=== PATIENT | female | born 1985 | race Caucasian/White ===

== ENCOUNTER 2016-12-20 08:46 | Emergency (ER) | payer OTHER | END 2016-12-20 10:36 | disposition home or self-care (01) | LOC: ERS 08:46 | DX: O99.89 Other specified diseases and conditions complicating pregnancy, childbirth and the puerperium (principal); N89.8 Other specified noninflammatory disorders of vagina; O99.331 Smoking (tobacco) complicating pregnancy, first trimester; F17.210 Nicotine dependence, cigarettes, uncomplicated | CPT/HCPCS: 36415; 84702; 87480; 87491; 87510; 87591; 87660; 99283 ==

== ENCOUNTER 2020-04-21 09:07 | Outpatient (CLI) | payer OTHER | END 2020-04-21 09:08 | disposition home or self-care (01) | LOC: DTY/OP 09:07 | PROVIDERS: ATTEND Specialist | DX: Z01.818 Encounter for other preprocedural examination (principal); E66.01 Morbid (severe) obesity due to excess calories | CPT/HCPCS: 97802 ==

== ENCOUNTER 2020-05-22 07:15 | Inpatient (IN) | payer OTHER ==
[2020-05-25 09:31] VITALS: BMI 38.6
[2020-05-26] MEDS ORDERED: Bupivacaine 0.25% HCL 30 ML VIAL ONE (06:24)
[2020-05-26] MEDS ORDERED: EPINEPHrine 1 MG/ML AMP ONE (06:24)
[2020-05-26] MEDS ORDERED: Ketorolac Tromethamine 30 MG/ML VIAL ONE (06:33)
[2020-05-26] MEDS ORDERED: Acetaminophen 500 MG TAB ONE (06:33)
[2020-05-26] MEDS ORDERED: Heparin 5,000 UNITS/ML VIAL ONE (06:33)
[2020-05-26] MEDS ORDERED: cefOXitin Sodium/Dextrose 2 GM/50 ML BAG ONE (06:33)
[2020-05-26] MEDS ORDERED: Dexmedetomidine 200 MCG/2 ML VIAL ONE (06:53)
[2020-05-26] MEDS ORDERED: Fentanyl 100 MCG/2 ML VIAL ONE ×2 (06:53→10:02)
[2020-05-26] MEDS ORDERED: Midazolam HCl 2 mg/2 ml Vial ONE (07:22)
[2020-05-26] MEDS ORDERED: Rocuronium Bromide 10 MG/ML (10ML VIAL) ONE (07:30)
[2020-05-26] MEDS ORDERED: Dexamethasone 20 MG/5 ML VIAL ONE (07:30)
[2020-05-26] MEDS ORDERED: PROPOFOL 200 MG/20 ML VIAL ONE (07:30)
[2020-05-26] MEDS ORDERED: Lidocaine 1% PF 5 ML VIAL ONE (07:30)
[2020-05-26] MEDS ORDERED: Ondansetron PF 4 MG/2 ML Vial ONE ×2 (07:30→09:59)
[2020-05-26] MEDS ORDERED: PHENYLEPHRINE-NS 100 MCG/ML 10 ML SYRINGE ONE (07:30)
[2020-05-26] MEDS ORDERED: Glycopyrrolate 0.2 MG/ML 5 ML SYRINGE ONE ×2 (07:30)
[2020-05-26] MEDS ORDERED: Levofloxacin 500 mg/D5W 100 ml Premix Bag ONE (07:34)
[2020-05-26] MEDS ORDERED: Promethazine HCl 25 MG/ML VIAL IM PRN (08:39)
[2020-05-26] MEDS ORDERED: Promethazine HCl 25 MG/ML VIAL SLOW IVP PRN (08:39)
[2020-05-26] MEDS ORDERED: Ondansetron HCl/PF 4 MG/2 ML Vial IVP PRN (08:39)
[2020-05-26] MEDS ORDERED: hydrALAZINE 20 MG/ML VIAL SLOW IVP PRN (11:37)
[2020-05-26] MEDS ORDERED: Dextrose 50% Abboject 50 ML SYRINGE SLOW IVP PRN (11:37)
[2020-05-26] MEDS ORDERED: Morphine 4 MG/ML VIAL SLOW IVP PRN (11:37)
[2020-05-26] MEDS ORDERED: diphenhydrAMINE 50 MG/ML VIAL IVP PRN (11:37)
[2020-05-26] MEDS ORDERED: Dextrose 5% in Water 1,000 ML IV PRN (11:37)
[2020-05-26] MEDS ORDERED: Morphine 2 MG/ML VIAL SLOW IVP PRN (11:37)
[2020-05-26] MEDS: D5 1/2 NS w/20 mEq KCL 1,000 ML IV SCH ×2 (12:59→20:34)
[2020-05-26] MEDS: Ketorolac Tromethamine 30 MG/ML VIAL IVP SCH ×3 (13:00→23:26)
[2020-05-26] MEDS: Promethazine HCl 25 MG/ML VIAL IM PRN ×3 (13:08→21:30)
[2020-05-26] MEDS: Ondansetron PF 4 MG/2 ML Vial IVP PRN (18:45)
[2020-05-26] MEDS: Enoxaparin Sodium 40 MG/0.4 ML SYRINGE SC SCH (20:35)
[2020-05-27] MEDS: D5 1/2 NS w/20 mEq KCL 1,000 ML IV SCH ×2 (04:28→12:48)
[2020-05-27] MEDS: Ondansetron PF 4 MG/2 ML Vial IVP PRN ×3 (04:29→20:27)
[2020-05-27 05:25] LABS: #Lymphocytes 2.5 thou/uL (1.20-3.40); #Monocytes 0.8 thou/uL (0.11-0.59); #Neutrophils 7.6 thou/uL (1.40-6.50); %Basophils 0.1 % (0.0-1.0); %Eosinophils 0.1 % (0.0-10.0); %Lymphocytes 23.1 % (21.0-51.0); %Neutrophils 69.8 % (42.0-75.0); Hemoglobin 12.7 g/dL (12.0-16.0); Mean Platelet Volume 7.6 fL (7.4-10.4); Platelet Count 304 thou/uL (130-400); RBC Distribution Width 12.3 % (11.5-14.5); Red Blood Cell (RBC) Count 3.26 mill/uL (4.20-5.40); White Blood Cell (WBC) Count 10.9 thou/uL (4.8-10.8)
[2020-05-27] MEDS: Ketorolac Tromethamine 30 MG/ML VIAL IVP SCH ×4 (05:25→23:16)
[2020-05-27] MEDS: Levothyroxine Sodium 100 MCG TAB PO SCH (05:25)
[2020-05-27 05:43] LABS: Anion Gap 11 mmol/L (10-20); BUN (Urea Nitrogen) 6 mg/dL (7.0-18.7); Calc. Creatinine Clearance 208 mL/min (70-130); Calcium 8.5 mg/dL (7.8-10.44); Carbon Dioxide 25 mmol/L (22-29); Chloride 107 mmol/L (98-107); Glucose 124 mg/dL (70-105); Sodium 139 mmol/L (136-145)
[2020-05-27] MEDS: Pantoprazole 40 MG VIAL IVP SCH (08:56)
[2020-05-27] MEDS ORDERED: D5 1/2 NS w/20 mEq KCL 1,000 ML IV SCH (19:00)
[2020-05-27] MEDS: Enoxaparin Sodium 40 MG/0.4 ML SYRINGE SC SCH (19:52)
[2020-05-27] MEDS: Hydrocodone-Acetamin 15 ML UDCUP PO PRN (19:52)
[2020-05-28 05:08] VITALS: TEMP 98
[2020-05-28] MEDS: Levothyroxine Sodium 100 MCG TAB PO SCH (06:13)
[2020-05-28] MEDS: Ketorolac Tromethamine 30 MG/ML VIAL IVP SCH (06:13)
[2020-05-28 07:55] VITALS: BP 123/83
[2020-05-28] MEDS: Hydrocodone-Acetamin 15 ML UDCUP PO PRN (08:29)
[2020-05-28] MEDS: Pantoprazole 40 MG VIAL IVP SCH (08:31)
== END 2020-05-28 10:52 | disposition home or self-care (01) | DRG 621 ==
LOC: SURG A 05-26 05:56 → EDSTATUS 05-26 07:15 → SJJU 05-26 11:21
PROVIDERS: ADMIT Specialist; ATTEND Specialist
PROC: 0DB64Z3 Excision of Stomach, Percutaneous Endoscopic Approach, Vertical (ICD-10-PCS; principal; 2020-05-26)
DX: E66.01 Morbid (severe) obesity due to excess calories (principal); E11.9 Type 2 diabetes mellitus without complications; E03.9 Hypothyroidism, unspecified; I10 Essential (primary) hypertension; Z20.822 Contact with and (suspected) exposure to COVID-19; Z88.0 Allergy status to penicillin; Z68.38 Body mass index [BMI] 38.0-38.9, adult
CPT/HCPCS: 36415; 80048; 85025; 88307; C9113; J0171; J0694; J1100; J1644; J1650; J1885; J1956; J2250; J2270; J2405; J2550; J2704; J3010; J3480; S0020

== ENCOUNTER 2020-05-22 07:21 | Outpatient (CLI) | payer OTHER ==
[2020-05-22 18:34] LABS: SARS-CoV-2 PCR by NAA Not Detected (NotDetected)
== END 2020-05-22 07:22 | disposition home or self-care (01) ==
LOC: LABBT 07:21
PROVIDERS: ATTEND Specialist
DX: Z01.812 Encounter for preprocedural laboratory examination (principal); E66.01 Morbid (severe) obesity due to excess calories; Z20.822 Contact with and (suspected) exposure to COVID-19
CPT/HCPCS: 87635; 93005; 93010; U0003; U0005

== ENCOUNTER 2021-08-02 12:39 | Outpatient (CLI) | payer OTHER ==
[2021-08-02 14:13] LABS: #Eosinphils 0.2 10x3/uL (0.0-0.5); #Monocytes 0.3 10x3/uL (0.0-1.1); #Neutrophils 3.3 10x3/uL (1.5-8.4); %Basophils 0.3 % (0.0-2.0); %Eosinophils 3.1 % (0.0-6.0); %Lymphocytes 35.4 % (18.0-47.0); %Monocytes 4.6 % (0.0-10.0); %Neutrophils 56.4 % (40.0-75.0); Hemoglobin 13.9 g/dL (12.0-15.5); Mean Corpuscular HGB CONC 33.9 g/dL (32.0-36.0); Mean Corpuscular Hemoglobin 33.7 pg (27.0-33.0); Mean Corpuscular Volume 99.5 fl (81.6-98.3); Mean Platelet Volume 10.8 fl (7.4-10.4); Platelet Count 218 10x3/uL (150-450); RBC Distribution Width 12.3 % (11.5-14.5); Red Blood Cell (RBC) Count 4.12 10x6/uL (3.90-5.03); White Blood Cell (WBC) Count 5.8 10x3/uL (3.5-10.5)
[2021-08-02 14:31] LABS: BHCG - Serum Negative (NEGATIVE); Pregs Control Background? CLEAR/WHITE (CLR/WHITE); Pregs Control Bar Appear? YES (CONTROL BAR)
[2021-08-02 14:32] LABS: ALT (SGPT) 24 U/L (8-55); AST (SGOT) 20 U/L (5-34); Albumin 4.1 g/dL (3.5-5.0); Alkaline Phosphatase 64 U/L (40-110); Anion Gap 13 mmol/L (10-20); BUN (Urea Nitrogen) 17 mg/dL (7.0-18.7); Bilirubin, Total 0.4 mg/dL (0.2-1.2); Calc. Creatinine Clearance 0 mL/min (70-130); Calcium 9.4 mg/dL (7.8-10.44); Carbon Dioxide 26 mmol/L (22-29); Chloride 104 mmol/L (98-107); Glucose 66 mg/dL (70-105); Potassium 4.8 mmol/L (3.5-5.1); Protein, Total 7.1 g/dL (6.0-8.3); Sodium 138 mmol/L (136-145)
== END 2021-08-02 12:40 | disposition home or self-care (01) ==
LOC: LABBT 12:39
PROVIDERS: ATTEND Specialist
DX: Z01.812 Encounter for preprocedural laboratory examination (principal); R10.11 Right upper quadrant pain; Z98.84 Bariatric surgery status; Z20.822 Contact with and (suspected) exposure to COVID-19
CPT/HCPCS: 80053; 84703; 85025; U0003; U0005

== ENCOUNTER 2021-08-05 10:20 | Day surgery (SDC) | payer OTHER ==
[2021-08-04 09:39] VITALS: BMI 22.5
[2021-08-05] MEDS ORDERED: Ketorolac Tromethamine 30 MG/ML VIAL ONE ×2 (10:51→16:11)
[2021-08-05] MEDS ORDERED: Acetaminophen 500 MG TAB ONE (10:51)
[2021-08-05] MEDS ORDERED: Scopolamine 1.5 mg/72 hour Patch ONE (12:01)
[2021-08-05] MEDS ORDERED: Bupivacaine 0.25% HCL 30 ML VIAL ONE (14:17)
[2021-08-05] MEDS ORDERED: Lidocaine 1% w/Epinephrine 1:100K 20 ML VIAL ONE (14:17)
[2021-08-05] MEDS ORDERED: Midazolam HCl 2 mg/2 ml Vial ONE (15:21)
[2021-08-05] MEDS ORDERED: Famotidine/PF 20 mg/2ml Vial ONE (15:22)
[2021-08-05] MEDS ORDERED: fentaNYL Citrate/PF 100 MCG/2 ML SYRINGE ONE (15:22)
[2021-08-05] MEDS ORDERED: HYDROmorphone 0.5 MG/0.5 ML SYRINGE ONE (15:22)
[2021-08-05] MEDS ORDERED: Ondansetron PF 4 MG/2 ML Vial ONE (16:11)
[2021-08-05] MEDS ORDERED: Succinylcholine 200 MG/10 ml SYRINGE FS ONE (16:11)
[2021-08-05] MEDS ORDERED: Lidocaine 1% PF 5 ML VIAL ONE (16:11)
[2021-08-05] MEDS ORDERED: ePHEDrine 50 MG/ML VIAL ONE (16:11)
[2021-08-05] MEDS ORDERED: PROPOFOL 200 MG/20 ML VIAL ONE (16:11)
[2021-08-05] MEDS ORDERED: Metoclopramide HCl 10 MG/2 ML VIAL ONE (16:11)
[2021-08-05] MEDS ORDERED: Dexamethasone 20 MG/5 ML VIAL ONE (16:11)
[2021-08-05] MEDS ORDERED: Glycopyrrolate 0.2 MG/ML 5 ML SYRINGE ONE (16:11)
[2021-08-05] MEDS ORDERED: Rocuronium Bromide 10 MG/ML (10ML VIAL) ONE (16:11)
[2021-08-05] MEDS ORDERED: SUGAMMADEX SODIUM 200 MG/2 ML VIAL ONE (17:03)
[2021-08-05] MEDS ORDERED: Meperidine HCl/PF 25 MG/ML VIAL ONE (17:24)
[2021-08-05] MEDS ORDERED: HYDROcodone/Acetaminophen 5/325 mg Tablet ONE (17:59)
== END 2021-08-05 16:25 | disposition home or self-care (01) ==
LOC: SDC 10:20
PROVIDERS: ATTEND Specialist
PROC: 0FT44ZZ Resection of Gallbladder, Percutaneous Endoscopic Approach (ICD-10-PCS; principal; 2021-08-05)
DX: K80.10 Calculus of gallbladder with chronic cholecystitis without obstruction (principal); Z79.3 Long term (current) use of hormonal contraceptives; Z79.890 Hormone replacement therapy; Z79.899 Other long term (current) drug therapy; Z80.0 Family history of malignant neoplasm of digestive organs; Z91.038 Other insect allergy status; Z98.84 Bariatric surgery status
CPT/HCPCS: 88304; C1713; J1100; J1170; J1885; J2175; J2250; J2405; J2704; J2765; J3490; S0020; S0028